=== PATIENT | female | born 1935 | race Caucasian/White ===

== ENCOUNTER 2018-05-27 11:36 | Outpatient (CLI) | END 2018-05-27 11:37 | disposition home or self-care (01) | LOC: AMBL 11:36 | PROVIDERS: ATTEND Emergency Medicine | DX: S51.811A Laceration without foreign body of right forearm, initial encounter (principal); W06.XXXA Fall from bed, initial encounter ==

== ENCOUNTER 2018-07-23 09:00 | Outpatient (RCR) | END 2018-07-26 23:59 | disposition short-term general hospital (02) | PROVIDERS: ATTEND Family Medicine | DX: M54.5 Low back pain (principal); M54.16 Radiculopathy, lumbar region; M25.552 Pain in left hip; M25.551 Pain in right hip ==

== ENCOUNTER 2018-08-02 09:00 | Outpatient (RCR) ==
--- NOTE | 2018-07-28 10:08 | RS.OPPTDN ---
Subjective Date of Note: 07/28/18 Visit #: 8 Number of visits approved by Insurance: NA Date of Evaluation: 07/05/18 Payer Source: MEDICARE Treatment Diagnosis: Low Back Pain Current Subjective/complaints:: Pleased with her progress.She has not had sciatic pain for the past couple of days,only a dull ache present in the lumbar region this mornng.She does continue to have elevated pain later in the day, dependent upon how long she is on her feet. *Precautions: Patient has RA Pain Assessment - Pain Description Pain Location: lumbar Pain Description: Dull, Aching Pain Description: " minimal " Current Pain Intensity: not rated - Treatment Modality: Ultrasound Parameters/Method Applied: 10 mins. @ 1.5 w/cm2,continuous mode to lumbar. Patient Position: Right Sidelying - Heat/Cryotherapy Treatment: Hot Pack (20 mins. prior to US and manual therapy) Interventions - Exercise/Activities/Manual Therapy Exercises/Activities: HEP review only while receiving US treatment. Total minutes of Exercise: 0 Manual Therapy: 20 mins. soft tissue mobs. to lumbar region. Total minutes of Manual Therapy: 20 HOME EXERCISE PROGRAM: Pelvic tilts,SKTC,DKTC,LTR,90/90 hamstring stretches, piriformis stretches.Recommended 2x/day in pain free ROM.Copies given today of each exercise. - Charges Timed Code Treatment Minutes: 30 Total Treatment Time: 50 Procedures billed for this date of service:: hp,US,manual therapy Assessment: Patient progressing well towards rehab goals,no sciaitca present the past couple of days,increased awareness of positioning and body mechanics.She is compliant to HEP and recommendations of the therapy staff. Patient Education: Education of Plan of Care Patient demonstrates compliance with HEP?: Yes Short Term Goals Goal #1: Patient independent and compliant with HEP. Goal to be met by: 07/19/18 Progress towards Goal:: Met Goal #2: Pain level decreased to 6/10 at worst. Goal to be met by: 07/19/18 Progress towards Goal:: Met Goal #3: Patient to report being able to sit for short time before increased pain. Goal to be met by: 07/19/18 Progress towards Goal:: Met Group Home Goals Goal #1: Pt knows HEP and to continue ex's to maintain functional level at D/C. Goal to be met by: 08/19/18 Progress towards goal: Partially Met Goal #2: Score on Oswestry LBP scale improved to 39% impairment or less. Goal to be met by: 08/19/18 Progress towards goal: Progressing Goal #3: Pt able to tolerate sitting as needed without low back/hip pain. Goal to be met by: 08/19/18 Progress towards goal: Progressing Goal #4: Pt to amb. w/ min. gait deviation, community distances w/ min. LBP. Goal to be met by: 08/19/18 Progress towards goal: Partially Met Plan Dates of Group Home Goals: 08/19/18 Expiration date of current Insurance Approval:: NA PLAN: Cont. skilled PT to return patient to PLOF,pain free with ADL's.
--- NOTE | 2018-07-30 09:58 | RS.OPPTDN ---
Subjective Date of Note: 07/30/18 Visit #: 9 Number of visits approved by Insurance: NA Date of Evaluation: 07/05/18 Payer Source: MEDICARE Treatment Diagnosis: Low Back Pain Current Subjective/complaints:: Patient reports she continues to feel better,no scistica this morning.She also does her exercises throughout the day if her pain is present,and the piriformis stretch relieves her pain. *Precautions: Patient has RA Pain Assessment - Pain Description Pain Location: lumbar / L hip Pain Description: Dull Current Pain Intensity: minimal - Treatment Modality: Ultrasound Parameters/Method Applied: 10 mins. , cont. mode @ 1.5 w/cm2 to lumbar /SI region . - Heat/Cryotherapy Treatment: Hot Pack (20 mins. prior to US and manual therapy) Interventions - Exercise/Activities/Manual Therapy Exercises/Activities: NA Total minutes of Exercise: 0 Manual Therapy: 20 mins. soft tissue mobs. to lumbar region. Total minutes of Manual Therapy: 20 HOME EXERCISE PROGRAM: Pelvic tilts,SKTC,DKTC,LTR,90/90 hamstring stretches, piriformis stretches.Recommended 2x/day in pain free ROM.Copies given today of each exercise. - Charges Timed Code Treatment Minutes: 30 Total Treatment Time: 50 Procedures billed for this date of service:: hp,US,manual Assessment: Patient is less tender to palpate the L trochanteric area,no triger point tenderness present today.She has excellent understanding of HEP,is compliant to all recommendations. Patient Education: Education of diagnosis, Body/Joint mechanics, Home Exercise Program, Home Safety, Activity Modification, Education of Plan of Care Patient demonstrates compliance with HEP?: Yes Short Term Goals Goal #1: Patient independent and compliant with HEP. Goal to be met by: 07/19/18 Progress towards Goal:: Met Goal #2: Pain level decreased to 6/10 at worst. Goal to be met by: 07/19/18 Progress towards Goal:: Met Goal #3: Patient to report being able to sit for short time before increased pain. Goal to be met by: 07/19/18 Progress towards Goal:: Met Registered Nurse Hh Case Manager Goals Goal #1: Pt knows HEP and to continue ex's to maintain functional level at D/C. Goal to be met by: 08/19/18 Progress towards goal: Partially Met Goal #2: Score on Oswestry LBP scale improved to 39% impairment or less. Goal to be met by: 08/19/18 Progress towards goal: Progressing Goal #3: Pt able to tolerate sitting as needed without low back/hip pain. Goal to be met by: 08/19/18 Progress towards goal: Met Goal #4: Pt to amb. w/ min. gait deviation, community distances w/ min. LBP. Goal to be met by: 08/19/18 Progress towards goal: Partially Met Plan Dates of Registered Nurse Hh Case Manager Goals: 08/19/18 Expiration date of current Insurance Approval:: NA PLAN: Cont skilled PT to eliminate LBP,return to PLOF,initiate D/C plan next week.
--- NOTE | 2018-08-02 09:57 | RS.OPPTDN ---
Subjective Date of Note: 08/02/18 Visit #: 10 Number of visits approved by Insurance: N A Date of Evaluation: 07/05/18 Payer Source: MEDICARE Treatment Diagnosis: Low Back Pain Current Subjective/complaints:: Pleased with her progress,reports the exercises help with keeping her pain level down to a minimum with daily tasks. *Precautions: Patient has RA - Heat/Cryotherapy Treatment: Hot Pack (20 mins. prior to manual therapy) Interventions - Exercise/Activities/Manual Therapy Exercises/Activities: NA,is now independent with HEP. Total minutes of Exercise: 0 Manual Therapy: 25 mins. soft tissue mobs. to lumbar region. Total minutes of Manual Therapy: 25 HOME EXERCISE PROGRAM: Pelvic tilts,SKTC,DKTC,LTR,90/90 hamstring stretches, piriformis stretches.Recommended 2x/day in pain free ROM.Copies given today of each exercise. - Charges Timed Code Treatment Minutes: 25 Total Treatment Time: 45 Procedures billed for this date of service:: hp,manual therapy 2 Assessment: Patient has ubaldo all rehab goals ,is very compliant to HEP .She has no pain today,normal gait pattern.She is aware and agrees with D/C plan today. Patient Education: Education of diagnosis, Body/Joint mechanics, Home Exercise Program, Home Safety, Activity Modification, Education of Plan of Care Patient demonstrates compliance with HEP?: Yes Short Term Goals Goal #1: Patient independent and compliant with HEP. Goal to be met by: 07/19/18 Progress towards Goal:: Met Goal #2: Pain level decreased to 6/10 at worst. Goal to be met by: 07/19/18 Progress towards Goal:: Met Goal #3: Patient to report being able to sit for short time before increased pain. Goal to be met by: 07/19/18 Progress towards Goal:: Met Shampoo Technician Goals Goal #1: Pt knows HEP and to continue ex's to maintain functional level at D/C. Goal to be met by: 08/19/18 Progress towards goal: Met Goal #2: Score on Oswestry LBP scale improved to 39% impairment or less. Goal to be met by: 08/19/18 Progress towards goal: Met Goal #3: Pt able to tolerate sitting as needed without low back/hip pain. Goal to be met by: 08/19/18 Progress towards goal: Met Goal #4: Pt to amb. w/ min. gait deviation, community distances w/ min. LBP. Goal to be met by: 08/19/18 Progress towards goal: Met Plan Dates of Shampoo Technician Goals: 08/19/18 Expiration date of current Insurance Approval:: NA PLAN: D/C due to good progress.
--- NOTE | 2018-08-12 13:50 | RS.OPPTDC ---
Date of Discharge: 08/05/18 Date of Evaluation: 07/05/18 Number of Visits: 10 Treatment Diagnosis: Low Back Pain Current Complaints/Gains: Mrs. Payan states she is pleased with her progress. States she woke up pain-free this morning. States she is able to tolerate sitting positions as needed. States pain may get to 2-3/10 as the day progresses. Functional Outcome Measure Oswestry LBP: 12 - G Codes & Severity Modifier G Codes & Modifier: Mobility goal CJ. Mobility D/C CI Source of G Code score: Oswestry Gait - Gait Pattern General Gait Pattern Observation: No Deviations/Normal Interventions - Exercise/Activities/Manual Therapy Exercises/Activities: NA,is now independent with HEP. Manual Therapy: . HOME EXERCISE PROGRAM: Pelvic tilts,SKTC,DKTC,LTR,90/90 hamstring stretches, piriformis stretches.Recommended 2x/day in pain free ROM.Copies given today of each exercise. - Objective Findings Observations,measurements,etc.: Independent with HEP. Demonstrates normal gait. - Charges Timed Code Treatment Minutes: NA Total Treatment Time: NA Procedures billed for this date of service:: NA Assessment Assessment: Mrs. Payan is pleased with her progress with less pain with therapy. She is independent in her HEP and confident that she can continue the exercises on her own. She has met all STG and LTG's. Short Term Goals Goal #1: Patient independent and compliant with HEP. Goal to be met by: 07/19/18 Progress towards Goal:: Met Goal #2: Pain level decreased to 6/10 at worst. Goal to be met by: 07/19/18 Progress towards Goal:: Met Goal #3: Patient to report being able to sit for short time before increased pain. Goal to be met by: 07/19/18 Progress towards Goal:: Met Care Home Goals Goal #1: Pt knows HEP and to continue ex's to maintain functional level at D/C. Goal to be met by: 08/19/18 Progress towards goal: Met Goal #2: Score on Oswestry LBP scale improved to 39% impairment or less. Goal to be met by: 08/19/18 Progress towards goal: Met Goal #3: Pt able to tolerate sitting as needed without low back/hip pain. Goal to be met by: 08/19/18 Progress towards goal: Met Goal #4: Pt to amb. w/ min. gait deviation, community distances w/ min. LBP. Goal to be met by: 08/19/18 Progress towards goal: Met Plan Reason for Discharge:: All Goals Met Comments: No further skilled therapy indicated at this time.
== END 2018-08-26 23:59 ==
PROVIDERS: ATTEND Family Medicine
DX: M54.5 Low back pain (principal); M54.16 Radiculopathy, lumbar region; M25.552 Pain in left hip; M25.551 Pain in right hip